=== PATIENT | female | born 1990 | race American Indian/Alaskan Native ===

== ENCOUNTER 2019-03-12 00:02 | Emergency (ER) | payer SELFPAY ==
[2019-03-12 01:11] VITALS: BP 116/77
== END 2019-03-12 03:00 | disposition left against medical advice (07) ==
LOC: ED 00:02
DX: R19.00 Intra-abdominal and pelvic swelling, mass and lump, unspecified site (principal); Z53.21 Procedure and treatment not carried out due to patient leaving prior to being seen by health care provider